=== PATIENT | female | born 1975 | race Caucasian/White ===

== ENCOUNTER 2016-09-22 11:45 | Emergency (ER) | payer BC ==
[~2016-09-22] VITALS: Ht 162.6 cm; Wt 54.5 kg
[~2016-09-22 11:45] MED LIST changes: -TRM50T PO
--- OUTSIDE RECORDS SUMMARY | 2016-09-22 11:51 | XMS REPORT | Summary of Care ---
Author Author Senthil James M.D. Organization Unknown Address Unknown Phone Unavailable Care Team Providers Care Gravity Flow Irrigator Name Role Phone Feli Fiore Unavailable Unavailable Senthil James M.D. Unavailable Senthil James Unavailable Unavailable Unavailable Unavailable Functional Status Name Dates Details Functional status health issues are not documented Status: Name Dates Details Cognitive status health issues are not documented Status: Problems Name Dates Details Restless legs syndrome (RLS) (333.94, G25.81) Status: Active Ovarian cyst (620.2, N83.20) Status: Active Cervical motion tenderness (625.8, N94.9) Status: Active Diarrhea (787.91, R19.7) Status: Active Encounter for initial prescription of contraceptive pills (V25.01, Z30.011) Status: Active Pap smear of cervix with ASCUS, cannot exclude HGSIL (795.02, R87.611) Status: Active Tobacco abuse (305.1, Z72.0) Status: Active UTI (urinary tract infection) (599.0, N39.0) Status: Active Gardnerella vaginitis (616.10, N76.0) Status: Active Ovarian cyst (620.2, N83.209) Status: Active Dermoid cyst (229.9, D36.9) Status: Active Pelvic pain (R10.2) Status: Active Migraines (346.90, G43.909) Status: Active Bipolar affective disorder (296.80, F31.9) Status: Active Anxiety (300.00, F41.9) Status: Active Low back pain (724.2, M54.5) Status: Active Medications Name Dates Details Pramipexole Dihydrochloride 0.25 MG Oral Tablet Take 1 PO at HS Refills: 0 Senthil James M.D. 05-Oct-2015 Active DULoxetine HCl - 60 MG Oral Capsule Delayed Release Particles take 1 capsule bid Quantity: 60 Refills: 6 [place] Senthil Maldonado 05-Oct-2015 Active Indomethacin 50 MG Oral Capsule TAKE 1 CAPSULE 3 TIMES DAILY WITH FOOD NEEDED. Quantity: 90 Refills: 1 Senthil James M.D. Start 05-Oct-2015 Active Norethindrone 0.35 MG Oral Tablet TAKE 1 TABLET DAILY. Quantity: 1 Refills: 6 Feli Fiore Start Active ALPRAZolam XR 1 MG Oral Tablet Extended Release 24 Hour TAKE 1 TABLET DAILY. Quantity: 30 Refills: 3 [place] Joel, Senthil Start Active Nitrofurantoin Monohyd Macro 100 MG Oral Capsule TAKE 1 CAPSULE TWICE DAILY UNTIL GONE. Quantity: 10 Refills: 0 [place] M.D., Senthil Start 01-Feb-2016 Active MetroNIDAZOLE 500 MG Oral Tablet Take 1 tab po twice daily x 7 days Quantity: 14 Refills: 0 [place] M.D., Senthil Start 01-Mar-2016 Active TraMADol HCl - 50 MG Oral Tablet TAKE 1 TO 2 TABLETS 4 TIMES DAILY NEEDED FOR PAIN. Quantity: 120 Refills: 5 Erika Dorsey.Esther, Senthil Start 30-Apr-2016 Active ALPRAZolam 0.5 MG Oral Tablet TAKE ONE TABLET BY MOUTH THREE TIMES DAILY PRN Quantity: 50 Refills: 5 [place] M.D., Senthil Start 11-Jun-2016 Active Latuda 20 MG Oral Tablet TAKE 1 TABLET Daily Before Meals Quantity: 30 Refills: 6 [place] M.D., Senthil Start 11-Jun-2016 Active Allergies and Adverse Reactions Name Dates Details hydrocodone (Allergy) Status: Active Past Medical History Name Dates Details Anxiety (300.00, F41.9) Status: Active Bipolar affective disorder (296.80, F31.9) Status: Active Low back pain (724.2, M54.5) Status: Active Ovarian cyst (620.2, N83.20) Status: Active Restless legs syndrome (RLS) (333.94, G25.81) Status: Active History of goiter (V12.29, Z86.39) Status: Resolved History of ovarian cyst (V13.29, Z87.42) Status: Resolved Procedures Procedure Dates Details History of Tubal Ligation History of Breast Surgery Reduction Procedure History of Appendectomy History of Dilation And Curettage Procedures not documented Immunization Name Dates Details Immunizations not documented Family History Name Dates Details Family history of hypertension (V17.49, Z82.49) Status: Active Family history of cerebrovascular accident (CVA) (V17.1, Z82.3) Status: Active Family history of Anxiety (300.00, F41.9) Status: Active Family history of depression (V17.0, Z81.8) Status: Active Name Dates Details Family history of Coronary artery disease (414.00, I25.10) Status: Active Family history of hypertension (V17.49, Z82.49) Status: Active Family history of myocardial infarction (V17.3, Z82.49) Status: Active Social History Name Dates Details - Status: Name Dates Details Smoker. current status unknown Vital Signs Date Test Result Details 12-Jul-2016 16:08 BP Systolic 142 mm[Hg] Status: Comments: Location: LUE; Position: Sitting BP Diastolic 80 mm[Hg] Status: Comments: Location: LUE; Position: Sitting Temperature 98.4 f Status: Comments: Method: Tympanic Heart Rate 97 /min Status: Comments: Location: ; Weight 140 lb Status: Physical Findings 94 Status: Comments: O2 Saturation Body Mass Index Calculated 24.2 kg/m2 Status: Body Surface Area Calculated 1.68 m2 Status: Results Date Description Value Details Results not documented Plan of Care Name Dates Details Planned Observations Planned Goals not documented Interventions Provided Medication ChangesTraMADol HCl - 50 MG Oral Tablet - Renew Instructions Name Dates Details Instructions not documented Encounters Appointment; Senthil James M.D. Encounter Diagnosis: Problem not documented On 02-Jul-2016 15:30 Appointment; Senthil James M.D. Encounter Diagnosis: Problem not documented On 11-Jun-2016 09:30 Appointment; Senthil James M.D. Encounter Diagnosis: Problem not documented On 30-Apr-2016 15:45 Appointment; Snethil James M.D. Encounter Diagnosis: Problem not documented On 01-Apr-2016 16:00 Appointment; Feli Fiore Encounter Diagnosis: Problem not documented On 08-Mar-2016 15:15 Appointment; Senthil James M.D. Encounter Diagnosis: Problem not documented On 01-Mar-2016 16:30 Appointment; Feli Fiore Encounter Diagnosis: Problem not documented On 07-Feb-2016 15:45 Appointment; Senthil James M.D. Encounter Diagnosis: Problem not documented On 01-Feb-2016 16:00 Appointment; Feli Fiore Encounter Diagnosis: Problem not documented On 15-Jan-2016 13:30 Appointment; Senthil James M.D. Encounter Diagnosis: Problem not documented On 09-Jan-2016 15:45 Appointment; Senthil James M.D. Encounter Diagnosis: Problem not documented On 01-Jan-2016 16:00 Appointment; Senthil James M.D. Encounter Diagnosis: Problem not documented On 16:00 Appointment; Feli Fiore Encounter Diagnosis: Problem not documented On 13:45 Appointment; Senthil James M.D. Encounter Diagnosis: Problem not documented On 16:15 Appointment; Senthil James M.D. Encounter Diagnosis: Problem not documented On 05-Oct-2015 16:15
--- NOTE | 2016-09-22 12:02 | NUR ---
pt refuses to talk, given call light and instructed when ready to talk with physician ring the call light, family placed in the outpt room
--- NOTE | 2016-09-22 12:12 | NUR ---
in to talk with pt
[2016-09-22] MEDS ORDERED: DIAZEPAM 10 MG/2 ML (VALIUM) SYRINGE IV ONE (12:15)
[2016-09-22 12:24] LABS: BASOPHILS % (AUTO) 1 % (0-2); EOSINOPHILS # (AUTO) 0.2 10^3uL; EOSINOPHILS % (AUTO) 2 % (0-4); LYMPHOCYTES # (AUTO) 2.9 X10^3; MEAN CORPUSCULAR HGB CONC 33.2 g/dL (31.0-37.0); MEAN CORPUSCULAR VOLUME 95 FL (80-100); MEAN PLATELET VOLUME 9.5 FL (6.0-9.5); MONOCYTES # (AUTO) 0.7 X10^3; MONOCYTES % (AUTO) 8 % (3-11); NEUTROPHILS # (AUTO) 4.4 X10^3; NEUTROPHILS % (AUTO) 54 % (51-67); PLATELET COUNT 407 10^3uL (150-450); WHITE BLOOD COUNT 8.17 10^3uL (4.0-11.0)
--- NOTE | 2016-09-22 12:26 | NUR ---
pt given water, unable to urinate at this time
[2016-09-22] MEDS ORDERED: TRM50T PO (12:27)
[2016-09-22 12:29] LABS: MEAN CORPUSCULAR HEMOGLOBIN 31.4 PG (26.0-34.0)
[2016-09-22] MEDS ORDERED: INSULIN REGULAR 1 UNIT/0.01 ML DOSE SC ONE (12:30)
[2016-09-22 12:35] LABS: ALBUMIN 4.8 g/dL (3.4-5.0); ALKALINE PHOSPHATASE 91 U/L (38-126); ANION GAP 26.1 MEQ/L (3-15); BUN/CREATININE RATIO 16 (10-20); TOTAL PROTEIN 8.2 g/dL (6.4-8.5)
[2016-09-22 13:06] LABS: BILIRUBIN,URINE Negative (Negative); CLARITY,URINE Clear; COLOR,URINE Yellow; GLUCOSE, URINE (UA) Negative (Negative); LEUKOCYTE ESTERASE ,URINE Negative (Negative); UROBILINOGEN,URINE 0.2 mg/dL (0.2-1.0)
[2016-09-22 13:08] LABS: URINE CENTRIFUGED VOLUME 12 mL
[2016-09-22 13:13] LABS: RBC,URINE 0-2 /HPF
[2016-09-22 13:15] LABS: AMPHETAMINE SCREEN, URINE Negative (Negative); METHAMPHETAMINE SCREEN URINE S NEGATIVE (NEGATIVE)
[2016-09-22 13:16] LABS: CANNABINOID SCREEN, URINE Negative (Negative); OPIATE SCREEN URINE Negative (Negative); PROPOXYPHENE STAT NEGATIVE (NEGATIVE)
[2016-09-22] MEDS ORDERED: KETOROLAC 30 MG/ML (TORADOL) 1 ML VIAL IV ONE (13:30)
--- NOTE | 2016-09-22 13:57 | Diagnostic Imaging Report ---
PROCEDURE: CT head without contrast. TECHNIQUE: Multiple contiguous axial images were obtained through the brain without the use of intravenous contrast. INDICATION: Seizures. COMPARISON: Comparison is made with the prior head CT from April 19, 2016. FINDINGS: There is no CT evidence of an acute intracranial hemorrhage. There is no intracranial mass effect or shift. There is no hydrocephalus. There is no abnormal extra-axial fluid collection. Esquivel and white differentiation appears preserved. There is no abnormal hypodensity within the basal ganglia. Basilar cisterns are patent. Posterior fossa is unremarkable. The mastoid air cells appear clear. The visualized paranasal sinuses are clear. No calvarial abnormality is demonstrated. IMPRESSION: No CT evidence of an acute intracranial abnormality. Dictated by: Dictated on workstation # [id number]
[2016-09-22 14:23] VITALS: BP 142/90
== END 2016-09-22 14:10 | disposition home or self-care (01) ==
LOC: EDUNIT# 11:45 → ED 11:47
DX: G40.89 Other seizures (principal); F17.210 Nicotine dependence, cigarettes, uncomplicated
CPT/HCPCS: 36415; 70450; 80053; 80307; 80320; 81003; 81015; 84443; 85025; 96374; 96375; 99283; J1885; J3360; 99282

== ENCOUNTER → 2016-09-22 | Outpatient (CLI) | payer BC ==
[~2016-09-22] MED LIST: ASPI1TAB; DULO60CA58 PO; HYDR-33 PO; NAPR500T8 PO; OXYC15TA79 PO; TRM50T PO; [UNRECOGNIZED DRUG - CODE] PO
== END ==
LOC: EMS 11:40
PROVIDERS: ATTEND Emergency Medicine
DX: R56.9 Unspecified convulsions (principal)